=== PATIENT | male | born 1995 | race Two or more races ===

== ENCOUNTER 2021-08-30 10:17 | Emergency (ER) | payer BC ==
[2021-08-30] MEDS ORDERED: Ketorolac 60 MG/2 ML SDV IM ONE (10:33)
[2021-08-30] MEDS ORDERED: Cyclobenzaprine 10 MG Tab PO ONE (10:33)
[2021-08-30] MEDS ORDERED: HYDROmorphone 1 MG/ML Syringe IM ONE (11:15)
== END 2021-08-30 12:30 | disposition home or self-care (01) ==
LOC: KA.ED 10:17
DX: M54.42 Lumbago with sciatica, left side (principal); M62.830 Muscle spasm of back; Z88.0 Allergy status to penicillin
CPT/HCPCS: 96372; 99283; A9270-GY; J1170; J1885

== ENCOUNTER 2023-06-23 13:03 | Emergency (ER) | payer BC ==
[2023-06-23] MEDS: HYDROmorphone 1 MG/ML Syringe ONE (13:37)
[2023-06-23] MEDS: HYDROmorphone 1 MG/ML Syringe IVPUSH ONE (13:38)
[2023-06-23 13:39] LABS: BASOPHILS ABSOLUTE AUTO 0.03 10^3/uL (0.00-0.10); BASOPHILS PERCENT AUTO 0.4 % (0.0-1.0); EOSINOPHILS ABSOLUTE AUTO 0.07 10^3/uL (0.10-0.30); EOSINOPHILS PERCENT AUTO 0.9 % (1.0-3.0); HEMATOCRIT 45.7 % (40.0-52.0); IMMATURE GRAN ABSOLUTE AUTO 0.02 10^3/uL (0.00-0.50); IMMATURE GRAN PERCENT AUTO 0.2 % (0.0-5.0); LYMPHOCYTES ABSOLUTE AUTO 3.34 10^3/uL (1.00-4.00); LYMPHOCYTES PERCENT AUTO 40.7 % (20.0-40.0); MEAN CORPUSCULAR HEMOGLOBIN 27.1 pg (27.0-31.0); MEAN CORPUSCULAR HGB CONC 32.8 g/dL (32.0-36.0); MEAN CORPUSCULAR VOLUME 82.5 fL (82.0-92.0); MEAN PLATELET VOLUME 9.1 fL (7.4-10.4); MONOCYTES ABSOLUTE AUTO 0.48 10^3/uL (0.10-0.80); MONOCYTES PERCENT AUTO 5.9 % (2.0-8.0); NEUTROPHILS ABSOLUTE AUTO 4.26 10^3/uL (2.50-7.00); NEUTROPHILS PERCENT AUTO 51.9 % (50.0-70.0); PLATELET COUNT,PLT 339 10^3/uL (150-400); RED BLOOD CELL COUNT 5.54 10^6/uL (4.50-6.00); RED CELL DISTRIBUTION WIDTH 12.8 % (11.5-14.5)
[2023-06-23] MEDS: Ondansetron 4 MG/2 ML SDV IVPUSH ONE (13:43)
[2023-06-23 13:51] LABS: ALANINE AMINOTRANSFERASE,ALT 40 U/L (14-63); ALBUMIN 4.15 g/dL (3.40-5.00); ALKALINE PHOSPHATASE 88 U/L (46-116); AMYLASE 42 U/L (25-125); ANION GAP 13.5 mmol/L (5-15); ASPARTATE AMNIOTRANSFERASE,AST 23 U/L (15-37); BILIRUBIN TOTAL 0.7 mg/dL (0.2-1.0); BLOOD UREA NITROGEN,BUN 13 mg/dL (7-18); CALCIUM 8.9 mg/dL (8.7-10.3); CARBON DIOXIDE,CO2 25.5 mmol/L (21.0-32.0); CHLORIDE,CL 101 mmol/L (98-107); CREATININE 0.74 mg/dL (0.51-1.17); ESTIMATED GFR 127 mL/min (>=60); GLUCOSE RANDOM 104 mg/dL (70-140); LIPASE 28 U/L (16-77); SODIUM,NA 136 mmol/L (136-145)
[2023-06-23] MEDS: Sodium Chloride 0.9% 50 ML IV SCH (14:12)
[2023-06-23] MEDS: Iopamidol 755 Mg/ML 100 ML Bottle IV ONE (14:12)
[2023-06-23 14:16] LABS: APPEARANCE,URINE CLEAR (CLEAR); BILIRUBIN,URINE NEGATIVE (NEGATIVE); COLOR,URINE YELLOW (YELLOW); GLUCOSE,URINE NEGATIVE (NEGATIVE); KETONES,URINE NEGATIVE (NEGATIVE); LEUKOCYTE ESTERASE,URINE NEGATIVE (NEGATIVE); NITRITE,URINE NEGATIVE (NEGATIVE); OCCULT BLOOD,URINE NEGATIVE (NEGATIVE); PH,URINE 5.5 (5.0-9.0); PROTEIN,URINE 100 mg/dL (NEGATIVE); UROBILINOGEN,URINE 0.2 E.U./dL (0.2-1.0)
[2023-06-23 14:23] LABS: BACTERIA,URINE RARE /HPF (NONE TO FEW); EPITHELIAL CELLS,URINE RARE /LPF; MUCUS,URINE FEW /LPF (NEGATIVE); RBC,URINE 0-5 /HPF (0-5); WBC,URINE 0-5 /HPF (0-5)
[2023-06-23] MEDS: Ketorolac 30 MG/ML SDV IVPUSH ONE (14:41)
[2023-06-23] MEDS: Ketorolac 30 MG/ML SDV ONE (14:44)
[2023-06-23] MEDS: Sodium Chloride 0.9% 1,000 ML IV ONE (15:07)
[2023-06-23] MEDS: Sodium Chloride 0.9% 1,000 ML ONE (15:13)
== END 2023-06-23 16:15 ==
LOC: KA.ED 13:03
DX: R10.11 Right upper quadrant pain (principal); Z88.0 Allergy status to penicillin
CPT/HCPCS: 74177; 80053; 81001; 82150; 83690; 85025; 96361; 96374; 96375; 99285-25; J1170; J1885; J2405; J3490; J7030; Q9967